=== PATIENT | female | born 1985 | race Caucasian/White ===

== ENCOUNTER 2018-07-16 16:11 | Emergency (ER) | payer SELFPAY ==
[~2018-07-16] VITALS: Wt 60.1 kg
[2018-07-16] MEDS ORDERED: ACETAMINOPHEN 500 MG TAB PO STA (17:38)
[2018-07-16] MEDS ORDERED: OSEL75CA23 PO (17:47)
--- NOTE | 2018-07-16 17:47 | ERD ---
ER Documentation Chief Complaint Chief Complaint bodyaches, run nose, sore throat since AM. no meds taken. HPI 33-year-old female who is otherwise healthy presents with fever, runny nose, s ore throat, body aches, and cough. Her symptoms began today. She took Tylenol earlier this morning but no other diuretics since. No nausea vomiting or diarrhea. ROS All systems reviewed and are negative except as per history of present illness. Medications Home Meds No Active Prescriptions or Reported Meds Allergies Allergies: Coded Allergies: No Known Allergy (Verified , 07/16/18) PMhx/Soc History of Surgery: Yes (3 C SECTION) Anesthesia Reaction: No Hx Neurological Disorder: No Hx Respiratory Disorders: No Hx Cardiac Disorders: No Hx Psychiatric Problems: No Hx Miscellaneous Medical Probl: No Hx Alcohol Use: No Hx Substance Use: No Hx Tobacco Use: No Smoking Status: Never smoker FmHx Family History: No diabetes Physical Exam Vitals Vital Signs Date Temp Pulse Resp B/P (MAP) Pulse Ox O2 O2 Flow FiO2 Time Delivery Rate 07/16/18 102.6 90 18 128/75 100 16:23 (92) Physical Exam INITIAL VITAL SIGNS: Reviewed by me GENERAL: Awake, alert and oriented x 4, well appearing, nontoxic, speaking in full sentences. No acute distress HEAD: Atraumatic NECK: Supple. No masses. Full range of motion. No meningismus. No midline tenderness. EYES: EOMI. PERRL. THROAT: No tonilar erythema or edema. No exudates. Uvula midline. No kissing tonsils. RESPIRATORY: Clear to auscultation bilaterally. Symmetric chest wall rise. No wheezing or rales. No accessory muscle use. CV: Regular rate and rhythm. No murmurs, rubs, or gallops. ABDOMEN: Soft, non-distended. Nontender. Negative [place]. Negative McBurneys point tenderness. No CVA tenderness bilaterally. No guarding. No rebound. Results 24 hrs Current Medications Medications Dose Sig/Chad Start Time Status Last (Trade) Ordered Route PRN Stop Time Admin Dose Reason Admin 1,000 mg ONCE STAT 07/16/18 DC Acetaminophen PO 17:38 (Tylenol 07/16/18 17:39 Tab) Procedures/MDM This is a 33-year-old female who is otherwise healthy. She presents with fever and flulike symptoms that began today. She was given Tylenol here. She is still within the therapeutic window for Tamiflu so she was given prescription for Tamiflu. She should continue to take and/or alternate Tylenol and/or Motrin at home. Patient counseled regarding my diagnostic impression and care plan. Prior to discharge all questions answered. Pt agrees with treatment plan and understands strict return precautions. Pt is instructed to follow up with primary care provider within 24-48 hours. Precautionary instructions provided including instructions to return to the ER if not improving or for any worsening or changing symptoms or concerns. Departure Diagnosis: Primary Impression: Influenza-like symptoms Condition: Stable BIJU KAUR PA-C Jul 16, 2018 17:47
[2018-07-16 18:33] VITALS: BP 106/58; PULSE 81; RESP 15
== END 2018-07-16 18:33 | disposition home or self-care (01) ==
LOC: FTE 16:11
DX: J02.9 Acute pharyngitis, unspecified (principal); R52 Pain, unspecified
CPT/HCPCS: 99283